=== PATIENT | male | born 1930 | race Caucasian/White ===

== ENCOUNTER 2016-04-30 05:21 | Emergency (ER) | payer MEDICAID, MEDICARE ==
[2016-04-30 05:28] VITALS: TEMP 98.3; BMI 24.0
[2016-04-30 05:46] LABS: AUTOMATED BASOPHIL 0.9 % (0-2); AUTOMATED EOSINOPHIL 0.7 % (0-5); AUTOMATED LYMPH 18.1 % (17-44); AUTOMATED MONOCYTE 7.3 % (3-10); MPV 8.2 fL (7.4-10.4)
[2016-04-30] MEDS ORDERED: NS 1,000 ML IV ONE (05:54)
[2016-04-30] MEDS ORDERED: MORPHINE 2 MG/ML INJECTION IV ONE (05:54)
[2016-04-30] MEDS ORDERED: ONDANSETRON HCL 4 MG/2 ML VIAL IV ONE (05:55)
--- NOTE | 2016-04-30 05:56 | EDPRACDOC ---
- General Information Information Source: Patient Mode Of Arrival: Car - History of Present Illness Onset: 12 hours Pain Location: Reports: LUQ Pain Context: Reports: Spontaneous Pain Severity: Moderate Pain Quality: Reports: Aching Pain Radiation: Reports: No Radiation Adult Abdominal History: Denies: Abdominal Surgery Modifying Factors: improves with: Nothing Associated Signs & Symptoms: Reports: Nausea Oral Intake: Normal Urinary Output: Normal <Javier Schmidt - Last Filed: 04/30/16 08:13> <Anitha Craft - Last Filed: 04/30/16 08:57> - General Information Chief Complaint: Abdominal Pain Stated Complaint: ABD PAIN Time Seen by Provider: 04/30/16 05:50 Allergies/Adverse Reactions: Allergies Allergy/AdvReac Type Severity Reaction Status Date / Time No Known Allergies Allergy Verified 04/30/16 05:28 - History of Present Illness HPI: PATIENT PRESENTS C/O LUQ ABDOMINAL PAIN TONIGHT INTERMITTENTLY. NO FEVER. NO N /V/D. FAMILY STATES HE HAS PAIN BUT THEN FORGETS BECAUSE OF DEMENTIA. (Javier Schmidt) ED Past Medical History - History Reviewed Yes Nurses notes reviewed and agree except as marked Travel Outside of [place] in the Last 3 Months?: No - Patient Medical History Neurological History: Reports: Dementia Cardiac History: Reports: Hypertension Surgical History: Reports: Other (B/L KNEE SURGERY. BACK SURGERY) <Javier Schmidt - Last Filed: 04/30/16 08:13> EDM Review of Systems - Review of Systems ROS Negative Except as Marked: Yes All systems reviewed and were negative except as marked Constitutional: No Symptoms Reported. negative: Fever, Chills, Weakness, Fatigue, Loss of Appetite Eyes: No Symptoms Reported. negative: Redness, Blurred Vision, Double Vision, Discharge, Pain, Light Sensitive, Photophobia Ears: No Symptoms Reported. negative: Pain, Hearing Loss, Drainage, Ear Pulling Throat: No Symptoms Reported. negative: Pain, Swelling Nose: No Symptoms Reported. negative: Congestion, Bleeding, Discharge, Injection, Swelling, Deformity, Ecchymosis, Tender, Abrasion, Laceration Mouth: No Symptoms Reported. negative: Pain, Drooling Respiratory: No Symptoms Reported. negative: Cough, Brassy Cough, Barky Cough, Shortness of Breath, Wheezing, Hemoptysis Cardiovascular: No Symptoms Reported. negative: Chest Pain, Palpitations, Syncope, Edema, Orthopnea, PND, Skin Mottling, Cyanosis Gastrointestinal: Pain. negative: Constipation, Diarrhea, Formula Intolerance, Melena, Nausea, Vomiting Genitourinary: No Symptoms Reported. negative: Dysuria, Hematuria, Frequency, Discharge, Bleeding, Testicular Pain, Neurological: No Symptoms Reported. negative: Headache, Dizziness, Seizure, Numbness, Weakness, Speech Difficulty, Gait Difficulty Musculoskeletal: No Symptoms Reported. negative: Neck, Chestwall, Ribs, Back, Shoulder, Arm, Elbow, Forearm, Wrist, Hand, Pelvis, Hip, Femur, Knee, Leg, Ankle , Foot Integumentary: No Symptoms Reported. negative: Itching, Rash, Bruising, Wound Allergic/Immunologic: No Symptoms Reported. negative: Hives, Itching Hematologic: No Symptoms Reported. negative: Lymphadenopathy, Easy Bruising, Easy Bleeding Endocrine: No Symptoms Reported. negative: Weight Gain, Weight Loss Psychiatric: No Symptoms Reported. negative: Anxiety, Depression, Hallucinations, Insomnia, Suicidal <SchmidtJavier britton - Last Filed: 04/30/16 08:13> - Physical Exam Constitutional: Alert (Awake), No apparent distress Oriented to: Time, Person, Place - HEENT Head: Normal ( normocephalic) Eye Exam: Normal (PERRL, EOMI, Sclera white) Oropharynx: Normal (Pharynx:Moist without exudate,Gums-no swelling) Tympanic Membrane: Normal ENT EAC: Normal TMJ: Normal Nose: No Symptoms Reported (septum midline) Neck: Normal (FROM, trachea at midline) - Respiratory/Cardiovascular Respiratory: Normal - CTA (BBS clear to auscultation without adventitious sounds ) Cardiovascular: Normal (RRR without murmur, gallop or rub) - GI Auscultation: Normal (NABS) Palpation: Normal (Soft,No rebound or guarding, non distended) Tenderness: Non tender Hernandez's Sign: Negative - Musculoskeletal Back: Normal (Non-Tender) Extremities: Normal (Normal tone, Pulses 2+ No cyanosis or edema, FROM) - Integumentary Skin: Normal, Warm, Dry Lymphatics: Normal (no adenopathy) - Neurologic Memory Impaired: Normal Motor Function: Normal (Normal tone, Pulses 2+ No cyanosis or edema, FROM) Cranial Nerve: Normal (CN II-X11 intact sensation, strength 5/5) Cerebellar: Normal Mood Description: Normal Perception: Normal <Javier Schmidt - Last Filed: 04/30/16 08:13> - Results 04/30/16 05:26 04/30/16 05:26 <BrayanJavier - Last Filed: 04/30/16 08:13> - Re-evaluation Re-evaluation 1 Re-evaluation Time: 08:00 (I ASSUMED CARE FROM DR SCHMIDT AWAITING CT RESULTS. PT COMFORTABLE.) Re-evaluation 2 Re-evaluation Time: 08:56 (NO SYMPTOMS CURRENTLY, THIRSTY) - Results 04/30/16 05:26 04/30/16 05:26 - Diagnostic Imaging Abdomen Image interpreted by: , Radiologist <Anitha Craft - Last Filed: 04/30/16 08:57> - Re-evaluation Re-evaluation 2 General: Pleasant MALE No acute distress. Neuro: Alert Oriented, calm and cooperative HEENT: Normocephalic atraumatic. Sclerae nonicteric. Extraocular movements intact. Oral mucosa pink and moist. Neck: Supple. Nontender. Good range of motion. No masses. Trachea is midline. No cervical adenopathy. Lungs: Clear to auscultation. No rhonchi or wheezing. Heart: Regular rate and rhythm. No murmur. Abdomen: Soft, nontender, nondistended. No hepatosplenomegaly. No abdominal wall defects or masses. No guarding or rebound. Extremities: no cyanosis clubbing or edema. No palpable deformities. Skin: Warm and dry, no rashes NO PHYSICAL EXAM OR CLINICAL INDICATIONS OF GB DISEASE AT THIS TIME. (Anitha Craft) - Results WBC 14.6 xk/uL (3.8-10.8) H 04/30/16 05:26 RBC 3.70 xM/uL (4.70-6.10) L 04/30/16 05:26 Hgb 12.4 g/dL (14.0-18.0) L 04/30/16 05:26 Hct 36.4 % (42-52) L 04/30/16 05:26 MCV 99 fL (80-94) H 04/30/16 05:26 MCH 33.5 pg (27-32) H 04/30/16 05:26 MCHC 34.0 g/dl (33-36) 04/30/16 05:26 RDW 12.9 % (11.5-14.5) 04/30/16 05:26 Plt Count 261 xk/uL (130-400) 04/30/16 05:26 MPV 8.2 fL (7.4-10.4) 04/30/16 05:26 Neut % (Auto) 73.0 % (45-76) 04/30/16 05:26 Lymph % (Auto) 18.1 % (17-44) 04/30/16 05:26 [place] % (Auto) 7.3 % (3-10) 04/30/16 05:26 Eos % (Auto) 0.7 % (0-5) 04/30/16 05:26 Baso % (Auto) 0.9 % (0-2) 04/30/16 05:26 Absolute Neuts (auto) 10.66 xk/uL (1.7-8.2) H 04/30/16 05:26 Absolute Lymphs (auto) 2.63 xk/uL (0.65-4.75) 04/30/16 05:26 Sodium 137 mEq/L (137-146) 04/30/16 05:26 Potassium 4.4 mEq/L (3.5-5.1) 04/30/16 05:26 Chloride 102 mEq/L (98-107) 04/30/16 05:26 Carbon Dioxide 25 mMOL/L (22-33) 04/30/16 05:26 Anion Gap 14 mEq/L (8-16) 04/30/16 05:26 BUN 20 MG/DL (9-20) 04/30/16 05:26 Creatinine 1.00 MG/DL (0.66-1.25) 04/30/16 05:26 Estimated GFR (MDRD) > 60 mL/min (>=60) 04/30/16 05:26 Glucose 152 MG/DL (70-99) H 04/30/16 05:26 Calculated Osmolality 270 MOs/Kg (270-290) 04/30/16 05:26 Calcium 9.2 MG/DL (8.4-10.2) 04/30/16 05:26 Corrected Calcium 9.3 MG/DL (8.4-10.2) 04/30/16 05:26 Total Bilirubin 0.8 MG/DL (0.2-1.3) 04/30/16 05:26 AST 29 IU/L (17-59) 04/30/16 05:26 ALT 27 IU/L (21-72) 04/30/16 05:26 Alkaline Phosphatase 110 IU/L (50-160) 04/30/16 05:26 Total Protein 7.5 G/DL (6.3-8.2) 04/30/16 05:26 Albumin 3.9 G/DL (3.5-5.0) 04/30/16 05:26 Lipase 28 U/L (23-300) 04/30/16 05:26 Urine Color Yellow 04/30/16 05:50 Urine Clarity Clear 04/30/16 05:50 Urine pH 5.0 (5.0-8.0) 04/30/16 05:50 Ur Specific Scenic 1.010 (1.003-1.035) 04/30/16 05:50 Urine Protein Neg (NEG/TRACE) 04/30/16 05:50 Urine Glucose (UA) 1+ (NEGATIVE) 04/30/16 05:50 Urine Ketones Neg (NEGATIVE) 04/30/16 05:50 Urine Occult Blood Neg (NEG/TRACE) 04/30/16 05:50 Urine Nitrite Neg (NEGATIVE) 04/30/16 05:50 Urine Bilirubin Neg (NEGATIVE) 04/30/16 05:50 Urine Urobilinogen <2.0 MG/DL (0-1) 04/30/16 05:50 Ur Leukocyte Esterase Neg (NEGATIVE) 04/30/16 05:50 Urine RBC 0-2 (0-2) 04/30/16 05:50 Urine WBC 0-2 (0-2) 04/30/16 05:50 Ur Epithelial Cells Occ 04/30/16 05:50 Urine Bacteria Few (NEG/FEW) 04/30/16 05:50 Hyaline Casts 0-2 (0-2) 04/30/16 05:50 Lab Results 04/30/16 04/30/16 04/30/16 05:50 05:26 05:26 WBC 14.6 H RBC 3.70 L Hgb 12.4 L Hct 36.4 L MCV 99 H MCH 33.5 H MCHC 34.0 RDW 12.9 Plt Count 261 MPV 8.2 Neut % (Auto) 73.0 Lymph % (Auto) 18.1 [place] % (Auto) 7.3 Eos % (Auto) 0.7 Baso % (Auto) 0.9 Absolute Neuts (auto) 10.66 H Absolute Lymphs (auto) 2.63 Sodium 137 Potassium 4.4 Chloride 102 Carbon Dioxide 25 Anion Gap 14 BUN 20 Creatinine 1.00 Estimated GFR (MDRD) > 60 Glucose 152 H Calculated Osmolality 270 Calcium 9.2 Corrected Calcium 9.3 Total Bilirubin 0.8 AST 29 ALT 27 Alkaline Phosphatase 110 Total Protein 7.5 Albumin 3.9 Lipase 28 Urine Color Yellow Urine Clarity Clear Urine pH 5.0 Ur Specific [place] 1.010 Urine Protein Neg Urine Glucose (UA) 1+ Urine Ketones Neg Urine Occult Blood Neg Urine Nitrite Neg Urine Bilirubin Neg Urine Urobilinogen <2.0 Ur Leukocyte Esterase Neg Urine RBC 0-2 Urine WBC 0-2 Ur Epithelial Cells Occ Urine Bacteria Few Hyaline Casts 0-2 (Anitha Craft) - Diagnostic Imaging Abdomen 04/30/16 08:51 Patient Name: PHILLIP CUMMINS LOC: ED : 1930 AGE: 86 Order Date:04/30/16 Date of Service:05/16 Report # [id number] Ord Physician: Javier Schmidt DO Exam # [id number] Emergency Physician: Javier Schmidt DO Exam(s): [id number] CT/CT ABD-PELV W/IV CM CLINICAL DATA: Right upper quadrant abdominal pain for 1 day. Leukocytosis. EXAM: CT ABDOMEN AND PELVIS WITH CONTRAST TECHNIQUE: Multidetector CT imaging of the abdomen and pelvis was performed using the standard protocol following bolus administration of intravenous contrast. CONTRAST: 100 cc Isovue 370. COMPARISON: None. FINDINGS: Liver, gallbladder, spleen, in pancreas are within normal limits. Tiny cysts in the kidneys. Right adrenal gland is normal. 10 mm left adrenal nodule on image 27 is nonspecific. Small umbilical hernia contains adipose tissue. Bladder and prostate are within normal limits No free-fluid. No abnormal adenopathy by measurement criteria. Normal appendix. No disproportionate dilatation of bowel to suggest obstruction. Atherosclerotic changes of the vasculature are noted involving the aorta, iliac vessels, and visceral vasculature. There is extensive calcification at the origin of the celiac and SMA. Significant narrowing cannot be excluded. Postoperative changes in the lumbar spine with decompression. Advanced degenerative changes throughout the lumbar spine. No compression deformity. IMPRESSION: No acute intra-abdominal pathology. 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 Significant narrowing cannot be excluded. Consider outpatient CT angiogram to further delineate. 10 mm left adrenal nodule is nonspecific. If there is high risk or history of malignancy, consider six-month follow-up study to re-evaluate. Electronically Signed By: Petar Corbin M.D. On: 04/30/2016 08:36 Electronically Signed By: Petar Corbin MD Electronically Signed Date/Time: Dictate Date/Time: 04/30/16828 Technologist: Carin Parra Transcribed By: Daniele Transcribed Date/Time: 04/30/1636 (Anitha Craft) - Departure Yes I personally saw and evaluated the patient. Education/Counseling Given To: Patient, Family Member Education/Counseling Given Regarding: Diagnosis, Treatment, Prognosis <Javier Schmidt - Last Filed: 04/30/16 08:13> - Departure Disposition: Home <Anitha Craft - Last Filed: 04/30/16 08:57> - Departure Condition: Stable Final Diagnosis: Abdominal pain Instructions: Acute Abdominal Pain (ED) Referrals: None,No Provider [Primary Care Provider] - One Week Additional Instructions: 856 Return to the Emergency Department for worse or different abdominal problems, especially in the next 12 - 24 hours. The test today did not determine the cause of your pain..
[2016-04-30] MEDS ORDERED: Pharmacy Review for Metformin - IV Contrast Given SCH (06:00)
[2016-04-30 06:06] LABS: LEUKOCYTES/URINE NEG (NEGATIVE); NITRITE/URINE NEG (NEGATIVE); RBC/URINE 0-2 (0-2); URINE OCCULT BLOOD NEG (NEG/TRACE); WBC/URINE 0-2 (0-2)
[2016-04-30 06:32] LABS: BLOOD UREA NITROGEN 20 MG/DL (9-20); CALC CORRECTED 9.3 MG/DL (8.4-10.2); CALCIUM 9.2 MG/DL (8.4-10.2); CALCULATED OSMOLALITY 270 MOs/Kg (270-290); CHLORIDE 102 mEq/L (98-107); GLUCOSE 152 MG/DL (70-99); SODIUM LEVEL 137 mEq/L (137-146); TOTAL PROTEIN 7.5 G/DL (6.3-8.2)
--- NOTE | 2016-04-30 08:39 | DIRPT ---
CLINICAL DATA: Right upper quadrant abdominal pain for 1 day. Leukocytosis. EXAM: CT ABDOMEN AND PELVIS WITH CONTRAST TECHNIQUE: Multidetector CT imaging of the abdomen and pelvis was performed using the standard protocol following bolus administration of intravenous contrast. CONTRAST: 100 cc Isovue 370. COMPARISON: None. FINDINGS: Liver, gallbladder, spleen, in pancreas are within normal limits. Tiny cysts in the kidneys. Right adrenal gland is normal. 10 mm left adrenal nodule on image 27 is nonspecific. Small umbilical hernia contains adipose tissue. Bladder and prostate are within normal limits No free-fluid. No abnormal adenopathy by measurement criteria. Normal appendix. No disproportionate dilatation of bowel to suggest obstruction. Atherosclerotic changes of the vasculature are noted involving the aorta, iliac vessels, and visceral vasculature. There is extensive calcification at the origin of the celiac and SMA. Significant narrowing cannot be excluded. Postoperative changes in the lumbar spine with decompression. Advanced degenerative changes throughout the lumbar spine. No compression deformity. IMPRESSION: No acute intra-abdominal pathology. 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 Significant narrowing cannot be excluded. Consider outpatient CT angiogram to further delineate. 10 mm left adrenal nodule is nonspecific. If there is high risk or history of malignancy, consider six-month follow-up study to re-evaluate. Electronically Signed By: Petar Corbin M.D. On: 04/30/2016 08:36
[2016-04-30 09:00] VITALS: BP 155/75; PULSE 77
== END 2016-04-30 08:58 | disposition home or self-care (01) ==
LOC: ED 05:21
DX: R10.9 Unspecified abdominal pain (principal)
CPT/HCPCS: 36415; 74177; 80053; 81001; 83690; 85025; 96361; 96374; 96375; 99284; A9698; J2270; J2405